=== PATIENT | female | born 1945 | race Caucasian/White ===

== ENCOUNTER 2021-06-05 09:20 | Emergency (ER) | payer OTHER, BC ==
[2021-06-05 09:27] VITALS: BMI 21.2
[2021-06-05 11:02] LABS: BASO % 0.8 % (0-2.0); EOS % 0.5 % (0-4.5); HEMATOCRIT 24.2 % (32.4-45.2); HEMOGLOBIN 7.6 GM/dL (10.7-15.3); LYMPH % 17.7 % (8-40); MCH 22.7 pg (25.7-33.7); MCHC 31.3 g/dl (32.0-36.0); MEAN CELL VOLUME 72.7 fl (80-96); MONO % 11.5 % (3.8-10.2); NEUT % 69.5 % (42.8-82.8); PLATELET COUNT 390 10^3/uL (134-434); RBC 3.33 M/mm3 (3.60-5.2); RDW 19.7 % (11.6-15.6); WHITE BLOOD COUNT 7.7 K/mm3 (4.0-10.0)
[2021-06-05 11:11] LABS: INR 1.03 (0.83-1.09); PROTHROMBIN TIME (PATIENT) 11.9 SEC (9.7-13.0)
[2021-06-05 11:14] LABS: ACTIVATED PTT 30.4 SECONDS (25.2-36.5)
[2021-06-05 11:32] LABS: ALBUMIN 3.6 g/dl (3.4-5.0); BLOOD UREA NITROGEN 22.8 mg/dL (7-18)
[2021-06-05 11:35] LABS: CREATININE 0.9 mg/dL (0.55-1.3)
[2021-06-05 11:37] LABS: BILIRUBIN,TOTAL 0.4 mg/dL (0.2-1); TOT PROT 7.2 g/dl (6.4-8.2)
[2021-06-05 17:34] LABS: BASO % 0.5 % (0-2.0); HEMATOCRIT 26.1 % (32.4-45.2); HEMOGLOBIN 8.5 GM/dL (10.7-15.3); LYMPH % 25.9 % (8-40); MCHC 32.7 g/dl (32.0-36.0); MEAN CELL VOLUME 73.5 fl (80-96); MEAN PLT VOLUME 6.7 fl (7.5-11.1); MONO % 11.9 % (3.8-10.2); NEUT % 60.7 % (42.8-82.8); PLATELET COUNT 336 10^3/uL (134-434); RBC 3.54 M/mm3 (3.60-5.2); RDW 20.5 % (11.6-15.6); WHITE BLOOD COUNT 6.7 K/mm3 (4.0-10.0)
[2021-06-05 17:54] VITALS: BP 123/78; PULSE 78; TEMP 98.2
== END 2021-06-05 17:50 | disposition home or self-care (01) ==
LOC: JER 09:20
DX: D64.9 Anemia, unspecified (principal); R53.1 Weakness; R10.13 Epigastric pain
CPT/HCPCS: 36415; 36430; 36511; 74177-TC; 80053; 82272; 85025; 85610; 85730; 86850; 86900; 86901; 86922; 99285-25; P9038; P9058; Q9967

== ENCOUNTER 2021-06-13 04:34 | Day surgery (SDC) | payer OTHER, BC ==
[2021-06-11 12:09] VITALS: BMI 21.7
[2021-06-13 12:47] VITALS: TEMP 97.8
[2021-06-13 13:17] VITALS: PULSE 67
[2021-06-13 13:28] VITALS: BP 118/61
== END 2021-06-13 13:35 | disposition home or self-care (01) ==
LOC: JASU-ENDO 04:34
PROVIDERS: ATTEND Internal Medicine Gastroenterology
PROC: 0DBP8ZX Excision of Rectum, Via Natural or Artificial Opening Endoscopic, Diagnostic (ICD-10-PCS; 2021-06-13)
PROC: 0DB98ZX Excision of Duodenum, Via Natural or Artificial Opening Endoscopic, Diagnostic (ICD-10-PCS; 2021-06-13)
PROC: 0DB68ZX Excision of Stomach, Via Natural or Artificial Opening Endoscopic, Diagnostic (ICD-10-PCS; 2021-06-13)
PROC: 0DBH8ZX Excision of Cecum, Via Natural or Artificial Opening Endoscopic, Diagnostic (ICD-10-PCS; principal; 2021-06-13 13:00)
DX: Z12.11 Encounter for screening for malignant neoplasm of colon (principal); D50.9 Iron deficiency anemia, unspecified; D12.0 Benign neoplasm of cecum; K62.1 Rectal polyp; K57.30 Diverticulosis of large intestine without perforation or abscess without bleeding; K29.50 Unspecified chronic gastritis without bleeding; Z86.010 Personal history of colon polyps
CPT/HCPCS: 88305-TC; 88342-TC